=== PATIENT | male | born 1940 | race African-American/Black ===

== ENCOUNTER 2020-03-12 05:02 | Day surgery (SDC) | payer OTHER ==
[2020-03-10 15:30] VITALS: BMI 25.8
--- NOTE | 2020-03-12 11:51 | HP ---
History & Physical Update - History History: No Change - Physical Physical: No Change - Assessment Assessment: No Change - Plan Plan: No Change
--- NOTE | 2020-03-12 11:54 | OP ---
Operative Note - Note: Operative Date: 03/12/20 Pre-Operative Diagnosis: prostate cancer Operation: prostate cryoablation and cystoscopy Post-Operative Diagnosis: Same as Pre-op Surgeon: Aric Guy Anesthesiologist/FANCY PACKER: Jennifer Liao Anesthesia: General Estimated Blood Loss (mls): 10 Drains & Tubes with Location: 18 fr ashraf Operative Report Dictated: Yes
[2020-03-12] MEDS ORDERED: ONDANSETRON 4 MG/2 ML VIAL IVPUSH PRN (12:14)
[2020-03-12] MEDS ORDERED: oxyCODONE HCL 5 MG TABLET PO PRN (12:14)
[2020-03-12] MEDS ORDERED: LACTATED RINGERS SOLUTION 1,000 ML IV SCH (12:15)
[2020-03-12] MEDS ORDERED: ceFAZolin SODIUM 1 GM VIAL IVPB ONE (13:10)
[2020-03-12] MEDS ORDERED: PROPOFOL 20 ML ONE ×3 (13:34→14:39)
[2020-03-12] MEDS ORDERED: GLYCOPYRROLATE 0.2 MG/1 ML VIAL ONE (13:42)
[2020-03-12] MEDS ORDERED: ATROPINE SULFATE 1 MG/10 ML DISP.SYRIN ONE (13:42)
[2020-03-12] MEDS ORDERED: ceFAZolin SODIUM 1 GM VIAL ONE (13:42)
[2020-03-12] MEDS ORDERED: LIDOCAINE HCL/PF 2% SDV 5ML VIAL ONE (13:42)
[2020-03-12] MEDS ORDERED: DEXAMETHASONE SOD PHOSPHATE 4 MG/1 ML VIAL ONE (13:42)
[2020-03-12] MEDS ORDERED: BACITRACIN 15 GM TUBE TOPICAL OINTMENT ONE (13:49)
[2020-03-12] MEDS ORDERED: BACITRACIN 15 GM TUBE TOPICAL OINTMENT TP ONE (14:07)
[2020-03-12 16:58] VITALS: TEMP 96.9
[2020-03-12] MEDS ORDERED: oxyCODONE HCL 5 MG TABLET ONE (17:30)
[2020-03-12 17:58] VITALS: BP 127/85; PULSE 72
--- NOTE | 2020-03-13 21:13 | OP ---
DATE OF OPERATION: 03/12/2020 PREOPERATIVE DIAGNOSIS: Prostate cancer. POSTOPERATIVE DIAGNOSIS: Prostate cancer. PROCEDURE: Prostate cryoablation and cystoscopy. SURGEON: Aric Marvin MD STEWARD/STEWARDESS DECK: None. ANESTHESIA: General via laryngeal mask. ANESTHESIOLOGIST: BISHOP Hewitt SPECIMENS: None. CULTURES: None. DRAINS: An 18-Micronesian Hughes catheter. ESTIMATED BLOOD LOSS: 10 mL. COMPLICATIONS: None. DESCRIPTION OF PROCEDURE: Patient brought in the operating room, placed on the operating table in supine position. After the administration of general anesthesia via laryngeal mask, intravenous antibiotics were administered. Sequential compression devices were placed. Patient was placed in the dorsal lithotomy position. Perineum and genitals were prepped and draped in usual sterile manner. An 18-Micronesian Hughes catheter was placed per urethra, 10 mL placed in the balloon, and the bladder was then filled with 400 mL of sterile normal saline and clamped. The transrectal ultrasound probe was now placed per rectum and transrectal ultrasound of the prostate was done and a plan was devised for cryoablation using 8 probes. Now, the probes were placed under ultrasound guidance in their appropriate locations. Two temperature sensors were then placed in Denonvilliers fascia, one in the external sphincter. Measurements were taken. The probes were set to the appropriate length, and then, the Hughes catheter was removed. Cystoscopy was performed, demonstrated no probes had penetrated the prostatic urethra which was approximately 5 cm in length and no probes had penetrated into the bladder as well. The bladder was thoroughly inspected. There were no foreign bodies, tumors, stones, or inflammation. Both ureteral orifices were in their usual location with clear efflux bilaterally. The Super Stiff guidewire was then placed through the cystoscope, into the bladder. The cystoscope was removed. The urethral warmer was placed over the Super Stiff guidewire into the bladder, and the guidewire was removed. Urethral warming was started. Now, the probes' positions were reconfirmed. Temperature sensors were in proper position. Then, the cryoablation was done with 2 freeze/thaw cycles. At the end of the procedure, the temperature sensors and cryoablation probes were removed, leaving the urethral warmer in place for an additional 5 minutes. It was then removed. The 18-Micronesian Hughes catheter was replaced; 10 mL placed in the balloon. Urine drained clear. Manual pressure on the perineum achieved hemostasis. The wound was sterilely dressed with bacitracin, Xeroform, and Tegaderm. He tolerated the procedure well and transferred to Recovery in stable condition. ARIC MARVIN M.D. [id number]
== END 2020-03-12 17:50 | disposition home or self-care (01) ==
LOC: JASU-SURG 05:02
PROVIDERS: ATTEND Urology
PROC: 0V503ZZ Destruction of Prostate, Percutaneous Approach (ICD-10-PCS; principal; 2020-03-12 13:30)
DX: C61 Malignant neoplasm of prostate (principal)
CPT/HCPCS: 55873; C2618; 94760

== ENCOUNTER 2020-03-18 20:09 | Emergency (ER) | payer OTHER ==
[2020-03-18 20:24] VITALS: TEMP 98.6; BMI 25.9
--- NOTE | 2020-03-18 20:31 | PDOC ---
History of Present Illness - General Chief Complaint: Urinary Problem Stated Complaint: URINARY PROBLEM Time Seen by Provider: 03/18/20 20:28 History Source: Patient Exam Limitations: No Limitations - History of Present Illness Initial Comments: 03/18/20 20:51 79 y.o. M PMHx HTN presenting due to penile swelling. Patient reports he had a prostate cryoablation on 03/12 and had been catheterized. Patient reports lower abdominal pain, nausea, penile swelling starting on sun. He saw Dr. Guy this morning who removed the catheter. Patient reports the swelling has been increasing. Patient has had the inability to void today along with one episode of hematuria yesterday. Specialist: Dr. Guy PMHx: HTN Meds: In Chart Allergies: NKA 03/18/20 21:01 03/18/20 21:03 Is this a multiple visit Asthma Patient?: No Timing/Duration: 24 hours Past History - Medical History Allergies/Adverse Reactions: Allergies Allergy/AdvReac Type Severity Reaction Status Date / Time No Known Allergies Allergy Verified 03/12/20 12:07 Home Medications: Ambulatory Orders Losartan Potassium 25 mg PO DAILY 03/10/20 Tamsulosin HCl 0.4 mg PO DAILY 03/10/20 Amox-Tr/K Cl [Augmentin - 500Mg Tablet] 1 tab PO BID #14 tab 03/12/20 Ketorolac Tromethamine [Toradol] 10 mg PO Q6H #28 tablet 03/12/20 Amox-Tr/K Cl [Augmentin - 875Mg Tablet] 1 tab PO BID #14 tablet 03/18/20 Amox-Tr/K Cl [Augmentin - 875Mg Tablet] 1 tab PO BID #14 tablet 03/19/20 Cancer: Yes COPD: No HTN: Yes - Psycho-Social/Smoking History Smoking History: Current some day smoker Have you smoked in the past 12 months: Yes Number of Cigarettes Smoked Daily: 1 Information on smoking cessation initiated: No - Substance Abuse Hx (Audit-C & DAST Scrn) How often the patient has a drink containing alcohol: Never Score: In Men: 4 or > Positive; In Women: 3 or > Positive: 0 Screen Result (Pos requires Nsg. Audit-10AR): Negative In the last yr the pt used illegal drug/Rx for NonMed reason: No Score: Yes response is considered Positive: 0 Screen Result (Positive result requires Nsg. DAST-10): Negative Review of Systems - Review of Systems Able to Perform ROS?: Yes Is the patient limited Bahamian proficient: No Constitutional: No: Chills, Fever HEENTM: No: Blurred Vision, Double Vision Respiratory: No: Cough, Shortness of Breath Cardiac (ROS): No: Chest Pain, Edema, Syncope ABD/GI: Yes: Nausea. No: Constipated, Diarrhea, Vomiting : Yes: Hematuria, Other (anuric) Musculoskeletal: No: Back Pain, Muscle Weakness Integumentary: No: Bruising, Erythema Neurological: No: Headache, Numbness, Tingling Hematologic/Lymphatic: No: Blood Clots, Easy Bruising *Physical Exam - Vital Signs Last Vital Signs Temp Pulse Resp BP Pulse Ox 98.6 F 105 H 19 171/93 H 100 03/18/20 20:19 03/18/20 20:19 03/18/20 20:19 03/18/20 20:19 03/18/20 20:19 - Physical Exam General Appearance: Yes: Nourished, Appropriately Dressed. No: Apparent Distress Respiratory/Chest: positive: Lungs Clear, Normal Breath Sounds. negative: Chest Tender, Respiratory Distress, Accessory Muscle Use, Crackles, Rales, Stridor, Wheezing Cardiovascular: positive: Regular Rhythm, Regular Rate. negative: S1, S2, Edema, JVD, Murmur Gastrointestinal/Abdominal: positive: Normal Bowel Sounds, Tender (Suprapubic), Distended, Tenderness. negative: Flat, Soft, Guarding, Rebound Male Genitalia: positive: other (Suprapubic fullness/tenderness and dorsal peniloe swelling). negative: normal genitalia Musculoskeletal: positive: Normal Inspection. negative: CVA Tenderness Extremity: positive: Normal Inspection. negative: Coldness, Swelling, Calf Tenderness Integumentary: positive: Normal Color, Dry, Warm. negative: Swelling Neurologic: positive: Fully Oriented, Alert, Normal Mood/Affect, Normal Response ED Treatment Course - LABORATORY CBC & Chemistry Diagram: 03/18/20 21:16 03/18/20 21:16 Medical Decision Making - Medical Decision Making 03/18/20 21:04 79 y.o. M PMHx HTN presenting due to penile swelling. DDx: Rupture of bucks fasica Labs: WBC 7.3, Na 135 CT: Small amount of fluid accumulation noted along the superior surface of the penile shaft. Prostate gland enlarged and edematous. Small amount of fluid in the prevesical space and the extraperitoneal space bilaterally. Marked prostate enlargement concerning for acute prostatitis. UA: 2+ blood - Spoke with Dr. Guy recommends sending patient out with ashraf, augmentin and an outpatient follow up Dispo: D/C home 03/18/20 23:42 Discharge - Discharge Information Problems reviewed: Yes Clinical Impression/Diagnosis: Prostatitis Qualifiers: Prostatitis type: acute Qualified Code(s): N41.0 - Acute prostatitis Condition: Improved Disposition: HOME - Admission No - Additional Discharge Information Prescriptions: Amox-Tr/K Cl [Augmentin - 875Mg Tablet] 1 tab PO BID #14 tablet Amox-Tr/K Cl [Augmentin - 875Mg Tablet] 1 tab PO BID #14 tablet - Follow up/Referral Referrals: Aric Guy MD [Staff Physician] - - Patient Discharge Instructions Patient Printed Discharge Instructions: How to Care for Your Ashraf Catheter -- Male, DI for Urinary Retention in Men, DI for Acute Prostatitis Additional Instructions: You were seen in the emergency department for penile swelling. You received catheter and antibiotics . Your labs and imaging showed prostate swelling This can be caused by prior surgery. You were given antibiotics in the emergency department and sent home with a prescription. Please follow up with your primary care physician and or Dr. Guy regarding your visit to the emergency department. If you experience profound nausea, abdominal pain, fever, chills, blood in the urine please return to the emergency department. - Post Discharge Activity
--- NOTE | 2020-03-18 21:36 | PDOC ---
Documentation entered by Elba Thomson SCRIBE, acting as scribe for Joan Rangel DO. Joan Rangel DO: This documentation has been prepared by the Berto woodson Brenda, SCRIBE, under my direction and personally reviewed by me in its entirety. I confirm that the documentation accurately reflects all work, treatment, procedures, and medical decision making performed by me. Attending Attestation - Resident Resident Name: [email or web address] - ED Attending Attestation I have performed the following: I have examined & evaluated the patient, The case was reviewed & discussed with the resident, I agree w/resident's findings & plan, Exceptions are as noted - HPI HPI: 03/18/20 20:50 The patient is a 79 year old male with a significant PMH of HTN and prostate cryoablation (03/12) who presents to the emergency department for evaluation of penile swelling and pain since yesterday. He reports that after his cryoablation, he was catheterized. Endorses nausea and lower abdominal pain along with a full bladder feeling and inability to urinate. Patient notes that he saw Dr. Guy this morning, who removed the catheter. The patient denies chest pain, shortness of breath, headache and dizziness. Denies fever, chills, vomiting, diarrhea and constipation. Allergies: NKA Past surgical history: prostate cryoablation Social history: No reported hx of tobacco use, alcohol use or illicit drug use. Urologist: Malena - Physicial Exam PE: 03/18/20 20:50 GENERAL: (+) Uncomfortable appearing. Awake, alert, and fully oriented, in no acute distress NECK: Normal ROM, supple, no lymphadenopathy, JVD, or masses LUNGS: Breath sounds equal, clear to auscultation bilaterally. No wheezes, and no crackles HEART: (+) Tachycardic. Regular rhythm, normal S1 and S2, no murmurs, rubs or gallops ABDOMEN: (+) Distended bladder up to umbilicous. Soft, normoactive bowel sounds. No guarding, no rebound. No masses PELVIC AREA: (+) Tenderness and swelling on dorsal aspect of penis. No drainage. No blood. o testicular swelling. EXTREMITIES: Normal range of motion, no edema. No clubbing or cyanosis. No cords, erythema, or tenderness NEUROLOGICAL: Cranial nerves II through XII grossly intact. Normal speech, normal gait SKIN: Warm, Dry, normal turgor, no rashes or lesions noted. - Medical Decision Making 03/18/20 21:33 a/p: 79yo male with urinary retention -catheter was removed by Dr. Guy this am -pt s/p prostate ca -unable to urinate since catheter was removed -distended bladder, swollen penis -worsening swelling since the catheter was removed -will send labs, ua, ucx, ashraf -ct abd/pelvis given penile swelling and abd ttp -will monitor and reassess 03/18/20 23:18 no elevated wbc hgb stable ua shows blood ct pending 03/18/20 23:58 resident discussed the case with Dr. Guy, recommends ashraf, augmentin, follow up in the office pt and family updated stable for dc to home on abx Discharge - Discharge Information Problems reviewed: Yes Clinical Impression/Diagnosis: Prostatitis Condition: Improved Disposition: HOME - Admission No - Additional Discharge Information Prescriptions: Amox-Tr/K Cl [Augmentin - 875Mg Tablet] 1 tab PO BID #14 tablet - Follow up/Referral Referrals: Aric Guy MD [Staff Physician] - - Patient Discharge Instructions Patient Printed Discharge Instructions: DI for Acute Prostatitis, DI for Urinary Retention in Men, How to Care for Your Ashraf Catheter -- Male Additional Instructions: You were seen in the emergency department for penile swelling. You received catheter and antibiotics . Your labs and imaging showed prostate swelling This can be caused by prior surgery. You were given antibiotics in the emergency department and sent home with a prescription. Please follow up with your primary care physician and or Dr. Guy regarding your visit to the emergency department. If you experience profound nausea, abdominal pain, fever, chills, blood in the urine please return to the emergency department. - Post Discharge Activity
[2020-03-18 21:57] LABS: EPI CELLS 6 /uL (0-25.1); HYALINE CASTS 1 /uL (0-3.1); PH,URINE 6.5 (5.0-8.0); URINE APPEARANCE CLEAR; URINE BACTERIA 2 /uL (0-1359); URINE BILIRUBIN NEGATIVE (NEGATIVE); URINE COLOR YELLOW; URINE GLUCOSE (UA) NEGATIVE (NEGATIVE); URINE KETONE NEGATIVE (NEGATIVE); URINE LEUK ESTERASE NEGATIVE (NEGATIVE); URINE NITRITE NEGATIVE (NEGATIVE); URINE PROTEIN NEGATIVE (NEGATIVE); URINE RBC 344 /uL (0-23.9); URINE UROBILINOGEN 0.2 mg/dL (0.2-1.0); URINE WBC 13 /uL (0-25.8)
[2020-03-18 22:20] LABS: ALBUMIN 3.6 g/dl (3.4-5.0); BILIRUBIN,TOTAL 0.6 mg/dL (0.2-1); BLOOD UREA NITROGEN 9.1 mg/dL (7-18); CREATININE 0.8 mg/dL (0.55-1.3); POTASSIUM 4.6 mmol/L (3.5-5.1); TOT PROT 7.3 g/dl (6.4-8.2)
[2020-03-18 22:38] LABS: INR 1.06 (0.83-1.09); PROTHROMBIN TIME (PATIENT) 12.5 SEC (9.7-13.0)
[2020-03-18 22:51] LABS: EOS % 9.6 % (0-4.5); HEMATOCRIT 43.7 % (35.4-49); HEMOGLOBIN 14.7 GM/dL (11.7-16.9); LYMPH % 26.2 % (8-40); MCH 33.6 pg (25.7-33.7); MCHC 33.6 g/dl (32.0-35.9); MEAN CELL VOLUME 100.1 fl (80-96); MONO % 6.3 % (3.8-10.2); NEUT % 56.9 % (42.8-82.8); RBC 4.36 M/mm3 (4.00-5.60); WHITE BLOOD COUNT 7.3 K/mm3 (4.0-10.0)
[2020-03-18 23:22] LABS: MEAN PLT VOLUME 11.2 fl (7.5-11.1); PLATELET COUNT 152 K/MM3 (134-434)
[2020-03-18 23:23] LABS: PLATELET ESTIMATE ADEQUATE
[2020-03-18] MEDS ORDERED: AMOX TR/POT CLAV 875MG/125MG TABLETS (FP) PO ONE (23:54)
[2020-03-19] MEDS ORDERED: AMOX TR/POT CLAV 875MG/125MG TABLETS (FP) ONE (00:21)
[2020-03-19 00:56] VITALS: BP 157/83; PULSE 74
== END 2020-03-19 00:56 | disposition home or self-care (01) ==
LOC: JER 20:09
DX: N41.0 Acute prostatitis (principal)
CPT/HCPCS: 36415; 74177-TC; 80053; 81003; 85025; 85610; 87086; 99285-25; Q9967

== ENCOUNTER 2022-09-22 04:20 | Day surgery (SDC) | payer OTHER ==
[2022-09-20 12:39] VITALS: BMI 28.4
[2022-09-22 10:14] LABS: INR 1.07 (0.83-1.09); PROTHROMBIN TIME (PATIENT) 12.4 SEC (9.7-13.0)
[2022-09-22] MEDS ORDERED: MIDAZOLAM HCL 2 MG/2 ML SINGLE DOSE VIAL ONE (12:13)
[2022-09-22] MEDS ORDERED: ceFAZolin SODIUM 1 GM VIAL IVPB ONE (12:30)
[2022-09-22] MEDS ORDERED: BACITRACIN ZINC 15 GM TUBE TOPICAL OINTMENT TP ONE (13:30)
[2022-09-22] MEDS ORDERED: oxyCODONE HCL 5 MG TABLET PO PRN ×2 (13:42)
[2022-09-22] MEDS ORDERED: ONDANSETRON 4 MG/2 ML VIAL IVPUSH PRN (13:42)
[2022-09-22] MEDS ORDERED: PROMETHAZINE HCL 25 MG/1 ML VIAL IVPB PRN (13:42)
[2022-09-22] MEDS ORDERED: LACTATED RINGERS SOLUTION 1,000 ML IV SCH (13:45)
[2022-09-22 19:19] VITALS: RESP 20; TEMP 98.2
[2022-09-22 19:22] VITALS: BP 162/73; PULSE 71
== END 2022-09-22 19:09 | disposition home or self-care (01) ==
LOC: JASU-SURG 04:20
PROVIDERS: ATTEND Urology
PROC: 0V503ZZ Destruction of Prostate, Percutaneous Approach (ICD-10-PCS; principal; 2022-09-22 12:00)
DX: C61 Malignant neoplasm of prostate (principal)
CPT/HCPCS: 55873; C2618; 36415; 85610; 85730; 94760; C1769